=== PATIENT | male | born 1960 | race Caucasian/White ===

== ENCOUNTER 2017-02-01 13:42 | Emergency (ER) | payer OTHER ==
[~2017-02-01] VITALS: Ht 182.9 cm; Wt 131.5 kg
--- NOTE | ~2017-02-01 | EKG ---
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 : 1960 Requested By: Cornelio Madrid Order Number: [id number] MD: Hudson Toribio Measurements Intervals [place] Rate: 105 P: 60 HI: 128 QRS: 58 QRSD: 81 T: 56 QT: 324 QTc: 429 Interpretive Statements Sinus tachycardia Borderline T wave abnormalities Compared to ECG 06/30/1999 16:40:00 T-wave abnormality now present Premature ventricular complexes now present Electronically Signed On 02-03-2017 9:11:56 CDT by Hudson Toribio [email or web address] <ELECTRONICALLY SIGNED> By: Hudson Toribio MD, [facility] 02/03/17 0911 1352 135 Hudson Toribio MD, [facility] /EPI
[2017-02-01 14:34] LABS: ABSOLUTE NEUTROPHILS 5.8 thou/uL (1.4-8.2); BASOPHILS 1.3 % (0.0-2.0); EOSINOPHILS 2.8 % (0.0-3.0); HEMATOCRIT 42.1 % (42.0-52.0); HEMOGLOBIN 14.5 gm/dL (14.0-18.0); LYMPHOCYTES 18.6 % (24.0-44.0); MCH 33.5 pg (26.0-34.0); MCHC 34.5 g/dL (28.0-37.0); PLATELET COUNT 247 thou/uL (150-400); POLYS 72.3 % (36.0-66.0); RBC 4.34 mil/uL (4.50-6.00); RDW 13.4 % (10.5-14.5); WBC 8.1 thou/uL (4.0-11.0)
[2017-02-01 14:36] LABS: MANUAL DIFF NO
[2017-02-01 14:42] LABS: ANION GAP 9 mmol/L (7-16); BUN 15 mg/dL (7-18); CALCIUM 8.9 mg/dL (8.5-10.1); CHLORIDE 104 mmol/L (98-107); CO2 26 mmol/L (21-32); GLUCOSE 138 mg/dL (74-106); POTASSIUM 3.7 mmol/L (3.5-5.1); SODIUM 139 mmol/L (136-145)
[2017-02-01] MEDS ORDERED: LEXAPRO 10 MG T10 M2 PO (14:49)
[2017-02-01] MEDS ORDERED: IRBESARTAN75 MG PO (14:50)
[2017-02-01] MEDS ORDERED: XANAX 0.5 MG0.5 MG PO (14:51)
[2017-02-01 14:55] LABS: NT-PRO BRAIN NAT PEPTIDE 25 pg/mL (<300); TROPONIN-I < 0.04 ng/mL (<0.04-0.07)
[2017-02-01 16:07] VITALS: BP 152/90
== END 2017-02-01 16:08 | disposition home or self-care (01) ==
LOC: ER 13:42
PROVIDERS: Emergency Medicine
DX: R00.2 Palpitations (principal); Z98.890 Other specified postprocedural states; E66.9 Obesity, unspecified; Z88.0 Allergy status to penicillin; F17.220 Nicotine dependence, chewing tobacco, uncomplicated

== ENCOUNTER 2017-02-03 20:54 | Emergency (ER) | payer OTHER ==
[~2017-02-03] VITALS: Ht 182.9 cm; Wt 131.5 kg
--- NOTE | ~2017-02-03 | EKG ---
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 : 1960 Requested By: Aracelis Henson Order Number: [id number] MD: Jax Alfaro Measurements Intervals [place] Rate: 89 P: 64 NV: 138 QRS: 54 QRSD: 91 T: 56 QT: 352 QTc: 429 Interpretive Statements Sinus rhythm Ventricular premature complex Compared to ECG 02/01/2017 13:52:15 Ventricular premature complex(es) now present Sinus tachycardia no longer present T-wave abnormality no longer present Electronically Signed On 02-04-2017 8:13:05 CDT by Jax Alfaro [email or web address] <ELECTRONICALLY SIGNED> By: Jax Alfaro MD 02/04/17812 54 54 Jax Alfaro MD /[facility]
[~2017-02-03 20:54] MED LIST: IRBESARTAN75 MG PO; LEXAPRO 10 MG T10 M2 PO; XANAX 0.5 MG0.5 MG PO
[2017-02-03 21:34] LABS: BASOPHILS 2.7 % (0.0-2.0); HEMATOCRIT 41.6 % (42.0-52.0); HEMOGLOBIN 14.3 gm/dL (14.0-18.0); LYMPHOCYTES 34.4 % (24.0-44.0); MANUAL DIFF NO; MCH 33.1 pg (26.0-34.0); MCHC 34.2 g/dL (28.0-37.0); MCV 96.6 fL (80.0-100.0); MONOCYTES 8.7 % (1.0-8.0); PLATELET COUNT 246 thou/uL (150-400); POLYS 49.2 % (36.0-66.0); RBC 4.31 mil/uL (4.50-6.00); RDW 13.8 % (10.5-14.5); WBC 8.2 thou/uL (4.0-11.0)
[2017-02-03 21:41] LABS: ANION GAP 5 mmol/L (7-16); BUN 16 mg/dL (7-18); CALCIUM 8.4 mg/dL (8.5-10.1); CHLORIDE 108 mmol/L (98-107); CO2 25 mmol/L (21-32); GLUCOSE 108 mg/dL (74-106); POTASSIUM 3.6 mmol/L (3.5-5.1); SODIUM 138 mmol/L (136-145)
[2017-02-03 21:49] LABS: TROPONIN-I < 0.04 ng/mL (<0.04-0.07)
[2017-02-03 22:40] VITALS: BP 117/70
== END 2017-02-03 22:17 ==
LOC: ER 20:54
PROVIDERS: Emergency Medicine
DX: R07.89 Other chest pain (principal); F17.220 Nicotine dependence, chewing tobacco, uncomplicated; E66.9 Obesity, unspecified; Z98.890 Other specified postprocedural states; Z88.0 Allergy status to penicillin

== ENCOUNTER → 2017-02-04 | Outpatient (CLI) | payer OTHER | LOC: CAT 15:19 | DX: R07.9 Chest pain, unspecified (principal) ==

== ENCOUNTER 2019-06-16 18:36 | Emergency (ER) | payer OTHER ==
[~2019-06-16] VITALS: Ht 185.4 cm; Wt 133.8 kg
[2019-06-16 18:58] LABS: ABSOLUTE NEUTROPHILS 4.5 thou/uL (1.4-8.2); BASOPHILS 1.3 % (0.0-2.0); EOSINOPHILS 5.5 % (0.0-3.0); HEMATOCRIT 47.3 % (42.0-52.0); HEMOGLOBIN 15.8 gm/dL (14.0-18.0); LYMPHOCYTES 28.1 % (24.0-44.0); MCH 32.7 pg (26.0-34.0); MCHC 33.5 g/dL (28.0-37.0); MCV 97.9 fL (80.0-100.0); MONOCYTES 8.2 % (1.0-8.0); PLATELET COUNT 272 thou/uL (150-400); POLYS 56.9 % (36.0-66.0); RBC 4.84 mil/uL (4.50-6.00); RDW 13.7 % (10.5-14.5)
[2019-06-16 19:10] LABS: ANION GAP 10 mmol/L (7-16); BUN 15 mg/dL (7-18); CALCIUM 9.4 mg/dL (8.5-10.1); CHLORIDE 102 mmol/L (98-107); CO2 26 mmol/L (21-32); GLUCOSE 147 mg/dL (74-106); POTASSIUM 3.8 mmol/L (3.5-5.1); SODIUM 138 mmol/L (136-145)
[2019-06-16 19:20] LABS: ALBUMIN 3.6 g/dL (3.4-5.0); MAGNESIUM 2.1 mg/dL (1.8-2.4); SGOT 22 U/L (15-37); SGPT 26 U/L (30-65); TOTAL BILIRUBIN 0.4 mg/dL (<0.1-1.0); TOTAL PROTEIN 7.5 g/dL (6.4-8.2); TROPONIN-I <0.06 ng/mL (<0.06)
[2019-06-16] MEDS ORDERED: TOPROL XL25 MG PO (20:39)
[2019-06-16 21:35] VITALS: BP 151/86
--- NOTE | 2019-06-17 09:00 | EKG ---
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: : 1960 Requested By: Cornelio Madrid Order Number: [id number] MD: Hudson Toribio Measurements Intervals [place] Rate: 105 P: 60 [place]: 136 QRS: 58 QRSD: 80 T: 38 QT: 337 QTc: 446 Interpretive Statements Sinus tachycardia Borderline repolarization abnormality Compared to ECG 02/03/2017 20:55:47 Ventricular premature complex(es) no longer present Electronically Signed On 06-17-2019 9:00:26 GOLD STAMPER by Hudson Toribio [email or web address] <ELECTRONICALLY SIGNED> By: Hudson Toribio MD, [facility] 06/17/19 0900 D: 11/1841 41 Hudson Toribio MD, [facility] /EPI
== END 2019-06-16 21:35 | disposition home or self-care (01) ==
LOC: ER 18:36
PROVIDERS: Emergency Medicine
DX: R07.89 Other chest pain (principal); R00.2 Palpitations; R00.0 Tachycardia, unspecified; F41.0 Panic disorder [episodic paroxysmal anxiety]; F17.220 Nicotine dependence, chewing tobacco, uncomplicated; Z88.0 Allergy status to penicillin; Z90.49 Acquired absence of other specified parts of digestive tract